=== PATIENT | male | born 1975 | race Hispanic/Latino ===

== ENCOUNTER 2020-11-27 02:06 | Emergency (ER) | payer SELFPAY ==
[~2020-11-27] VITALS: Ht 167.6 cm; Wt 81.7 kg
--- OUTSIDE RECORDS SUMMARY | 2020-11-27 02:48 | XMS ---
PreManage Notification: JIGNESH DURAN [employer] Events No recent Security Events currently on file CRITERIA MET - [facility] - 2 Visits in 30 Days CARE PROVIDERS There are no care providers on record at this time. Theresa has no Care Guidelines for this patient. [place] VISIT COUNT (12 MO.) [facility] NOTE: Visits indicate total known visits. 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 - Alcohol use, unspecified with intoxication, unspecified - Patient's other noncompliance with medication regimen - Drug / Alcohol Assessment 11/13/2020 08:26 [facility] [place] TYPE: Emergency DIAGNOSES: - Alcoholic gastritis without bleeding - alcohol withdrawl - Alcohol dependence, uncomplicated - ETOH - Bipolar disorder, unspecified - Alcohol Intoxication [facility]2020 [facility] DIAGNOSES: - detox INPATIENT VISIT TRACKING (12 MO.) No inpatient visits to display in this time frame [email or web address]
== END 2020-11-27 02:28 | disposition home or self-care (01) ==
LOC: ED 02:06
DX: F10.10 Alcohol abuse, uncomplicated (principal); F15.10 Other stimulant abuse, uncomplicated
CPT/HCPCS: 99284; A9270